=== PATIENT | male | born 2000 ===

== ENCOUNTER 2022-06-15 18:40 | Emergency (ER) | payer OTHER, BC | END 2022-06-15 22:45 | disposition left against medical advice (07) | LOC: MW.ED 18:40 | DX: Z53.21 Procedure and treatment not carried out due to patient leaving prior to being seen by health care provider (principal) ==

== ENCOUNTER 2023-03-05 22:02 | Emergency (ER) | payer BC ==
[2023-03-05] MEDS ORDERED: Sodium Chloride 0.9% 1,000 ML IV ONE (22:23)
[2023-03-05] MEDS ORDERED: LORazepam 2 MG/ML SDV IVPUSH ONE (22:23)
[2023-03-05 22:40] LABS: BASOPHILS PERCENT AUTO 0.4 % (0.0-1.5); EOSINOPHILS ABSOLUTE AUTO 0.1 K/uL (0.0-0.7); EOSINOPHILS PERCENT AUTO 0.8 % (0.0-7.0); HEMATOCRIT 39.7 % (38.0-50.0); HEMOGLOBIN 13.8 g/dL (13.0-17.0); LYMPHOCYTES ABSOLUTE AUTO 2.2 K/uL (0.6-2.4); LYMPHOCYTES PERCENT AUTO 21.7 % (16.0-40.0); MEAN CORPUSCULAR HEMOGLOBIN 27.2 pg (27.0-32.0); MEAN CORPUSCULAR HGB CONC 34.8 g/dL (31.0-37.0); MEAN CORPUSCULAR VOLUME 78.3 fL (80.0-98.0); MONOCYTES ABSOLUTE AUTO 0.8 K/uL (0.0-0.8); MONOCYTES PERCENT AUTO 7.6 % (0.0-15.0); NEUTROPHILS PERCENT AUTO 69.5 % (48.0-80.0); NRBC ABSOLUTE 0 K/uL; PLATELET COUNT,PLT 226 K/uL (150-400); RED BLOOD CELL COUNT 5.07 M/uL (4.50-5.90); WHITE BLOOD CELL COUNT,WBC 10.01 K/uL (4.0-11.0)
[2023-03-05 23:18] LABS: A/G RATIO 1.2 (0.9-1.6); ALANINE AMINOTRANSFERASE,ALT 18 IU/L (14-63); ALBUMIN 4.1 g/dL (3.4-5.0); ALKALINE PHOSPHATASE 100 U/L (46-116); ASPARTATE AMNIOTRANSFERASE,AST 20 IU/L (15-37); BILIRUBIN TOTAL 0.7 mg/dL (0.2-1.0); BLOOD UREA NITROGEN,BUN 14 mg/dL (7.0-18.0); CALCIUM 9.1 mg/dL (8.5-10.1); CARBON DIOXIDE,CO2 24.3 mmol/L (21.0-32.0); CHLORIDE,CL 105 mmol/L (98-107); CREATININE 1.2 mg/dL (0.8-1.3); EST CRCL DRUG DOSING (CG) 115.58 mL/min; GLUCOSE RANDOM 105 mg/dL (74-106); POTASSIUM,K 3.4 mmol/L (3.5-5.1); PROTEIN TOTAL,TP 7.6 g/dL (6.4-8.2); SODIUM,NA 140 mmol/L (136-148); TSH ULTRASENSITIVE 2.48 uIU/mL (0.36-3.74)
[2023-03-05 23:32] LABS: ESTIMATED GFR 88 mL/min (>60); ETHANOL BLOOD MEDICAL < 3.0 mg/dL
== END 2023-03-06 00:04 | disposition home or self-care (01) ==
LOC: MW.ED 22:02
DX: F41.9 Anxiety disorder, unspecified (principal); F17.210 Nicotine dependence, cigarettes, uncomplicated
CPT/HCPCS: 36415; 80053; 80307; 83735; 84443; 85025; 93005; 96361; 96374; 99283; J2060; J7030; 93010; 99284